=== PATIENT | female | born 1955 | race Caucasian/White ===

== ENCOUNTER 2017-02-21 15:15 | Inpatient (IN) | payer MEDICARE, MEDICAID ==
[~2017-02-21] VITALS: Ht 158.7 cm; Wt 59.4 kg
[2017-02-21] MEDS ORDERED: BUSPAR5 MG PO ×2 (15:24→15:27)
[2017-02-21] MEDS ORDERED: BROVANA15 MCG/2 M INH (15:26)
[2017-02-21] MEDS ORDERED: ATIVAN0.5 MG PO ×2 (15:28→16:08)
[2017-02-21] MEDS ORDERED: CHLORASEPTIC S177 ML PO (15:30)
[2017-02-21] MEDS ORDERED: 'CLONIDINE0.1 MG PO (15:31)
[2017-02-21] MEDS ORDERED: DULCOLAX10 M1 R (15:32)
[2017-02-21] MEDS ORDERED: FLUTICASON0.05 MG/AC NAS (15:33)
[2017-02-21] MEDS ORDERED: COZAAR100 MG PO (15:35)
[2017-02-21] MEDS ORDERED: PREDNISONE10 M1 PO (15:37)
[2017-02-21] MEDS ORDERED: NATURE'S BLEND100 M2 PO (15:38)
[2017-02-21] MEDS ORDERED: HYDROCODONE/ACE1 TAB PO (15:48)
[2017-02-21] MEDS ORDERED: ATROVENT I0.5 MG/2.1 INH (15:53)
[2017-02-21] MEDS ORDERED: PRIMIDONE50 MG PO (15:54)
[2017-02-21] MEDS ORDERED: THEOPHYLLINE E100 M1 PO (15:58)
[2017-02-21] MEDS ORDERED: THERA-M W/MINER1 TAB PO (15:59)
[2017-02-21] MEDS ORDERED: ACETAMINOPHEN325 M2 PO (16:00)
[2017-02-21] MEDS ORDERED: ALBUTEROL SULFAT3 M2 INH (16:01)
[2017-02-21] MEDS ORDERED: ARTIFICIAL TEARS OU (16:05)
[2017-02-21] MEDS ORDERED: HYDROCODONE/ACE1 T11 PO (16:06)
[2017-02-21] MEDS ORDERED: SALINE NOSE SPR45 ML NAS (16:11)
[2017-02-21] MEDS ORDERED: Zofran4 MG PO (16:13)
[2017-02-21] MEDS ORDERED: NATURE'S BLEND500 M5 PO (16:13)
[2017-02-21 18:35] VITALS: BP 104/50
[2017-02-21 20:09] VITALS: BP 114/54
[2017-02-21 21:52] VITALS: BP 114/54
[2017-02-21 23:25] LABS: BILIRUBIN NEGATIVE (NEGATIVE); BLOOD NEGATIVE (NEGATIVE); CLARITY CLEAR (CLEAR); COLOR YELLOW (YELLOW); GLUCOSE NEGATIVE (NEGATIVE); KETONE NEGATIVE (NEGATIVE); LEUKO ESTERASE 2+ (NEGATIVE); NITRITE NEGATIVE (NEGATIVE); PH 5.5 (5.0-9.0); PROTEIN NEGATIVE (NEGATIVE); SPECIFIC GRAVITY <= 1.005 (1.005-1.030); UROBILINOGEN 0.2 E.U./dl (0.2-1.0)
[2017-02-21 23:32] LABS: BACTERIA TRACE; URINE REFLEX COMMENT YES (NO)
[2017-02-21 23:33] LABS: WBC 16-20 wbc/hpf (0-5)
[2017-02-22 02:07] LABS: ALBUMIN 3.1 gm/dl (3.1-4.5); ALKALINE PHOSPHATASE 78 U/L (45-117); BILIRUBIN, TOTAL 0.2 mg/dl (0.2-1.0); BUN 7 mg/dl (7-24); CARBON DIOXIDE 32 mmol/L (21-32); CHLORIDE 100 mmol/L (98-107); EST GLOM FILT AFRICAN AMERICAN > 60 ml/min; GLUCOSE 103 mg/dL (65-99); MAGNESIUM 1.8 mg/dL (1.5-2.1); POTASSIUM 3.8 mmol/L (3.5-5.1); SGOT/AST 22 IU/L (3-35); SGPT/ALT 19 U/L (12-78); SODIUM 141 mmol/L (136-145); TOTAL PROTEIN 6.3 gm/dL (6.4-8.2)
[2017-02-22 02:09] LABS: HEMATOCRIT 34.5 % (37.0-47.0); HEMOGLOBIN 10.2 g/dl (12.0-16.0); MEAN CELL VOLUME 76.8 fl (81.0-99.0); MEAN CORPUSCULAR HGB 22.7 pg (27.0-31.0); MEAN CORPUSCULAR HGB CONC 29.6 g/dl (33.0-37.0); MEAN PLATELET VOLUME 10.8 fl (9.6-12.3); PLATELET COUNT AUTOMATED 536 10*3/uL (130-400); RED BLOOD COUNT 4.49 10*6/uL (4.10-5.10); RED CELL DISTRI WIDTH 16.6 % (0-14.5); WHITE BLOOD COUNT 25.4 10*3/uL (4.8-10.8)
[2017-02-22 02:19] LABS: THEOPHYLLINE 5.2 ug/ml (10-20)
[2017-02-22 02:28] LABS: ATYPICAL LYMPHS 1 % (0-0); BASOPHIL # 0.3 10*3/uL (0-0.1); BASOPHILS 1 % (0-1); EOSINOPHIL # 0.5 10*3/uL (0-0.4); EOSINOPHILS 2 % (1-4); HYPOCHROMIA MODERATE; LYMPHOCYTE # 1.5 10*3/uL (1.3-4.4); MONOCYTE # 1.5 10*3/uL (0.1-1.0); NEUTROPHIL # 21.6 10*3/uL (2.3-7.9); NEUTROPHILS 85 % (47-73); PLATELET SUFFICIENCY HIGH (NORMAL); TOTAL CELLS COUNTED 100 #CELLS
[2017-02-22 02:29] LABS: MICROCYTOSIS SLIGHT
[2017-02-22 07:10] LABS: HEMATOCRIT 35.8 % (37.0-47.0); HEMOGLOBIN 10.5 g/dl (12.0-16.0); MEAN CELL VOLUME 77.3 fl (81.0-99.0); MEAN CORPUSCULAR HGB 22.7 pg (27.0-31.0); MEAN CORPUSCULAR HGB CONC 29.3 g/dl (33.0-37.0); MEAN PLATELET VOLUME 11.1 fl (9.6-12.3); PLATELET COUNT AUTOMATED 549 10*3/uL (130-400); RED BLOOD COUNT 4.63 10*6/uL (4.10-5.10); RED CELL DISTRI WIDTH 16.7 % (0-14.5); WHITE BLOOD COUNT 24.6 10*3/uL (4.8-10.8)
[2017-02-22 07:21] LABS: HEMOGLOBIN A1c 5.9 % (4.8-5.6)
[2017-02-22 07:22] LABS: ALKALINE PHOSPHATASE 81 U/L (45-117); BILIRUBIN, TOTAL 0.2 mg/dl (0.2-1.0); BUN 6 mg/dl (7-24); CARBON DIOXIDE 28 mmol/L (21-32); CHLORIDE 101 mmol/L (98-107); CHOLESTEROL 174 mg/dL (<200); EST GLOM FILT AFRICAN AMERICAN > 60 ml/min; GLUCOSE 101 mg/dL (65-99); HDL CHOLESTEROL 70 mg/dl (40-60); LDL CHOLESTEROL 87 mg/dL (9-159); POTASSIUM 4.3 mmol/L (3.5-5.1); SGOT/AST 14 IU/L (3-35); SGPT/ALT 18 U/L (12-78); SODIUM 141 mmol/L (136-145); TOTAL PROTEIN 6.4 gm/dL (6.4-8.2); TRIGLYCERIDES 87 mg/dl (<150); VLDL CHOLESTEROL 17 mg/dL (6-40)
[2017-02-22 07:28] LABS: THYROID STIM HORMONE (HS) 0.811 uIU/ml (0.358-4.75)
[2017-02-22 07:29] LABS: HYPOCHROMIA SLIGHT; METAMYELOCYTES 1 % (0-0); MICROCYTOSIS MODERATE; MONOCYTE # 2.7 10*3/uL (0.1-1.0); NEUTROPHIL # 20.7 10*3/uL (2.3-7.9); NEUTROPHILS 84 % (47-73); OVALOCYTES FEW; PLATELET SUFFICIENCY HIGH (NORMAL); TOTAL CELLS COUNTED 100 #CELLS
[2017-02-22 08:09] VITALS: BP 127/66
[2017-02-22] MEDS ORDERED: DULOXETINE HCL60 MG PO (08:22)
[2017-02-22] MEDS ORDERED: ZINC SULFATE220 MG PO (08:22)
[2017-02-22] MEDS ORDERED: CLONAZEPAM1 MG PO ×2 (08:22)
[2017-02-23] MEDS ORDERED: BUSPAR5 MG PO (05:40)
[2017-02-24] MEDS ORDERED: ATIVAN0.5 MG PO (05:33)
[2017-02-24] MEDS ORDERED: BUSPAR5 MG PO (05:38)
[2017-02-24] MEDS ORDERED: MOM30 ML PO (05:48)
[2017-02-25] MEDS ORDERED: HYDROXYZINE PAM25 M1 PO (14:15)
[2017-02-25] MEDS ORDERED: FUROSEMIDE20 M1 PO (14:15)
[2017-02-25] MEDS ORDERED: MUCINEX ER600 MG PO (14:15)
[2017-02-25] MEDS ORDERED: VANCOMYCIN250 MG/2.5 PO (14:15)
[2017-02-25] MEDS ORDERED: PREDNISONE10 MG PO (14:15)
[2017-02-25] MEDS ORDERED: LEVAQUIN750 M1 PO (14:15)
== END 2017-02-22 09:35 | disposition short-term general hospital (02) | DRG 885 ==
LOC: 3N 15:15
PROVIDERS: Internal Medicine; Psychiatry & Neurology Psychiatry
DX: F33.1 Major depressive disorder, recurrent, moderate (principal); J96.11 Chronic respiratory failure with hypoxia; Z93.0 Tracheostomy status; G20 Parkinson's disease; F41.1 Generalized anxiety disorder; J44.9 Chronic obstructive pulmonary disease, unspecified; M81.0 Age-related osteoporosis without current pathological fracture; I10 Essential (primary) hypertension; M54.5 Low back pain; G89.29 Other chronic pain; R00.0 Tachycardia, unspecified; R07.0 Pain in throat; R30.0 Dysuria; M79.7 Fibromyalgia; K44.9 Diaphragmatic hernia without obstruction or gangrene; Z82.49 Family history of ischemic heart disease and other diseases of the circulatory system; Z83.79 Family history of other diseases of the digestive system; Z88.1 Allergy status to other antibiotic agents; Z88.5 Allergy status to narcotic agent; Z88.8 Allergy status to other drugs, medicaments and biological substances; Z79.899 Other long term (current) drug therapy; Z90.49 Acquired absence of other specified parts of digestive tract

== ENCOUNTER 2017-02-25 16:07 | Inpatient (IN) | payer MEDICARE, MEDICAID ==
[~2017-02-25] VITALS: Ht 165.1 cm; Wt 62.2 kg
[~2017-02-25 16:07] MED LIST: 'CLONIDINE0.1 MG PO; ACETAMINOPHEN325 M2 PO; ALBUTEROL SULFAT3 M2 INH; ARTIFICIAL TEARS OU; ATIVAN0.5 MG PO; ATROVENT I0.5 MG/2.1 INH; BROVANA15 MCG/2 M INH; BUSPAR5 MG PO; CHLORASEPTIC S177 ML PO; CLONAZEPAM1 MG PO; COZAAR100 MG PO; DULCOLAX10 M1 R; DULOXETINE HCL60 MG PO; FLUTICASON0.05 MG/AC NAS; FUROSEMIDE20 M1 PO; HYDROCODONE/ACE1 T11 PO; HYDROCODONE/ACE1 TAB PO; HYDROXYZINE PAM25 M1 PO; LEVAQUIN750 M1 PO; MOM30 ML PO; MUCINEX ER600 MG PO; NATURE'S BLEND100 M2 PO; NATURE'S BLEND500 M5 PO; PREDNISONE10 M1 PO; PREDNISONE10 MG PO; PRIMIDONE50 MG PO; SALINE NOSE SPR45 ML NAS; THEOPHYLLINE E100 M1 PO; THERA-M W/MINER1 TAB PO; VANCOMYCIN250 MG/2.5 PO; ZINC SULFATE220 MG PO; Zofran4 MG PO
[2017-02-25 17:53] VITALS: BP 137/86
[2017-02-25 20:19] VITALS: BP 138/88
[2017-02-26 06:45] LABS: BUN 7 mg/dl (7-24); CARBON DIOXIDE 34 mmol/L (21-32); CHLORIDE 102 mmol/L (98-107); EST GLOM FILT AFRICAN AMERICAN > 60 ml/min; GLUCOSE 77 mg/dL (65-99); POTASSIUM 3.9 mmol/L (3.5-5.1); SODIUM 141 mmol/L (136-145)
[2017-02-26 07:06] LABS: BASO % 0.1 % (0.0-1.0); EOS % 0.1 % (1.0-4.0); HEMATOCRIT 34.8 % (37.0-47.0); IG # 0.1 10*3/uL (0.0-0.1); LYMPH # 1.8 10*3/uL (1.3-4.4); LYMPH % 15.1 % (27.0-41.0); MEAN CELL VOLUME 78.2 fl (81.0-99.0); MEAN CORPUSCULAR HGB 22.5 pg (27.0-31.0); MEAN CORPUSCULAR HGB CONC 28.7 g/dl (33.0-37.0); MEAN PLATELET VOLUME 10.8 fl (9.6-12.3); MONO # 1.4 10*3/uL (0.1-1.0); MONO % 11.9 % (3.0-9.0); NEUT # 8.7 10*3/uL (2.3-7.9); NUCLEATED RED BLOOD CELL 0.2 % (0.0-0.0); PLATELET COUNT AUTOMATED 481 10*3/uL (130-400); RED BLOOD COUNT 4.45 10*6/uL (4.10-5.10); WHITE BLOOD COUNT 12.1 10*3/uL (4.8-10.8)
[2017-02-26 10:48] VITALS: BP 160/98
[2017-02-26] MEDS ORDERED: DOXYCYCLINE MO100 M1 PO (18:56)
[2017-02-26 20:00] VITALS: BP 148/68
== END 2017-02-26 20:27 | DRG 190 ==
LOC: 3N 16:07
PROVIDERS: Internal Medicine Hospice and Palliative Medicine
DX: J44.0 Chronic obstructive pulmonary disease with (acute) lower respiratory infection (principal); J18.9 Pneumonia, unspecified organism; J96.11 Chronic respiratory failure with hypoxia; A04.7 Enterocolitis due to Clostridium difficile; Z93.0 Tracheostomy status; F33.1 Major depressive disorder, recurrent, moderate; N39.0 Urinary tract infection, site not specified; J44.1 Chronic obstructive pulmonary disease with (acute) exacerbation; G20 Parkinson's disease; D50.9 Iron deficiency anemia, unspecified; D47.3 Essential (hemorrhagic) thrombocythemia; M79.7 Fibromyalgia; I10 Essential (primary) hypertension; M54.5 Low back pain; G89.29 Other chronic pain; K44.9 Diaphragmatic hernia without obstruction or gangrene; F41.1 Generalized anxiety disorder; M81.0 Age-related osteoporosis without current pathological fracture; Z90.49 Acquired absence of other specified parts of digestive tract; Z87.891 Personal history of nicotine dependence; Z82.49 Family history of ischemic heart disease and other diseases of the circulatory system; Z84.89 Family history of other specified conditions; Z88.6 Allergy status to analgesic agent; Z88.1 Allergy status to other antibiotic agents; Z88.5 Allergy status to narcotic agent; Z79.2 Long term (current) use of antibiotics; Z79.899 Other long term (current) drug therapy

== ENCOUNTER 2017-02-26 19:02 | Inpatient (IN) | payer MEDICARE, MEDICAID ==
[~2017-02-26] VITALS: Ht 165.1 cm; Wt 61.3 kg
[~2017-02-26 19:02] MED LIST changes: +DOXYCYCLINE MO100 M1 PO
[2017-02-26 20:40] VITALS: BP 151/86
[2017-02-27] VITALS: BP 152/80
[2017-02-27 06:35] LABS: HEMATOCRIT 34.8 % (37.0-47.0); HEMOGLOBIN 10.3 g/dl (12.0-16.0); MEAN CORPUSCULAR HGB 22.8 pg (27.0-31.0); MEAN CORPUSCULAR HGB CONC 29.6 g/dl (33.0-37.0); MEAN PLATELET VOLUME 10.9 fl (9.6-12.3); PLATELET COUNT AUTOMATED 433 10*3/uL (130-400); RED BLOOD COUNT 4.52 10*6/uL (4.10-5.10); WHITE BLOOD COUNT 11.8 10*3/uL (4.8-10.8)
[2017-02-27 06:46] LABS: ALBUMIN 2.7 gm/dl (3.1-4.5); ALKALINE PHOSPHATASE 65 U/L (45-117); BILIRUBIN, TOTAL 0.2 mg/dl (0.2-1.0); BUN 9 mg/dl (7-24); CARBON DIOXIDE 34 mmol/L (21-32); CHLORIDE 100 mmol/L (98-107); EST GLOM FILT AFRICAN AMERICAN > 60 ml/min; GLUCOSE 101 mg/dL (65-99); MAGNESIUM 1.5 mg/dL (1.5-2.1); PHOSPHOROUS 2.2 mg/dL (2.5-4.9); POTASSIUM 3.4 mmol/L (3.5-5.1); SGOT/AST 17 IU/L (3-35); SGPT/ALT 23 U/L (12-78); SODIUM 142 mmol/L (136-145); TOTAL PROTEIN 5.8 gm/dL (6.4-8.2)
[2017-02-27 07:18] LABS: PROTHROMBIN TIME 10.7 SECONDS (9.0-12.4)
[2017-02-27 07:22] LABS: LYMPHOCYTE # 1.2 10*3/uL (1.3-4.4); MONOCYTE # 1.1 10*3/uL (0.1-1.0); NEUTROPHIL # 9.6 10*3/uL (2.3-7.9); NEUTROPHILS 81 % (47-73); PLATELET SUFFICIENCY HIGH (NORMAL); TOTAL CELLS COUNTED 100 #CELLS
[2017-02-27 07:23] LABS: HYPOCHROMIA SLIGHT; MICROCYTOSIS SLIGHT
[2017-02-27 08:00] VITALS: BP 133/75
[2017-02-27 12:00] VITALS: BP 131/75
[2017-02-27 16:00] VITALS: BP 119/73
[2017-02-27 20:00] VITALS: BP 100/65
[2017-02-28] VITALS: BP 104/66
[2017-02-28 07:19] LABS: BASO % 0.1 % (0.0-1.0); EOS # 0.1 10*3/uL (0.0-0.4); EOS % 0.7 % (1.0-4.0); HEMATOCRIT 34.8 % (37.0-47.0); HEMOGLOBIN 10.3 g/dl (12.0-16.0); IG # 0.1 10*3/uL (0.0-0.1); LYMPH # 2.2 10*3/uL (1.3-4.4); LYMPH % 16.3 % (27.0-41.0); MEAN CELL VOLUME 76.3 fl (81.0-99.0); MEAN CORPUSCULAR HGB 22.6 pg (27.0-31.0); MEAN CORPUSCULAR HGB CONC 29.6 g/dl (33.0-37.0); MONO % 7.7 % (3.0-9.0); NEUT # 9.9 10*3/uL (2.3-7.9); NEUT % 74.3 % (47.0-73.0); PLATELET COUNT AUTOMATED 455 10*3/uL (130-400); RED BLOOD COUNT 4.56 10*6/uL (4.10-5.10); WHITE BLOOD COUNT 13.3 10*3/uL (4.8-10.8)
[2017-02-28 07:29] LABS: BUN 13 mg/dl (7-24); CARBON DIOXIDE 37 mmol/L (21-32); CHLORIDE 96 mmol/L (98-107); EST GLOM FILT AFRICAN AMERICAN > 60 ml/min; GLUCOSE 126 mg/dL (65-99); POTASSIUM 3.3 mmol/L (3.5-5.1); SODIUM 140 mmol/L (136-145)
[2017-02-28 08:00] VITALS: BP 107/57
[2017-02-28 12:00] VITALS: BP 111/68
[2017-02-28 16:00] VITALS: BP 113/80
[2017-02-28 20:00] VITALS: BP 117/69
[2017-02-28 23:53] VITALS: BP 118/83
[2017-03-01 07:14] LABS: BASO % 0.1 % (0.0-1.0); EOS # 0.1 10*3/uL (0.0-0.4); EOS % 1.1 % (1.0-4.0); IG # 0.1 10*3/uL (0.0-0.1); LYMPH # 2.6 10*3/uL (1.3-4.4); LYMPH % 19.6 % (27.0-41.0); MEAN CELL VOLUME 76.1 fl (81.0-99.0); MEAN CORPUSCULAR HGB 22.4 pg (27.0-31.0); MEAN CORPUSCULAR HGB CONC 29.4 g/dl (33.0-37.0); MEAN PLATELET VOLUME 10.5 fl (9.6-12.3); MONO % 7.4 % (3.0-9.0); NEUT # 9.4 10*3/uL (2.3-7.9); NEUT % 70.7 % (47.0-73.0); PLATELET COUNT AUTOMATED 447 10*3/uL (130-400); RED BLOOD COUNT 4.47 10*6/uL (4.10-5.10); WHITE BLOOD COUNT 13.3 10*3/uL (4.8-10.8)
[2017-03-01 07:32] LABS: BUN 14 mg/dl (7-24); CARBON DIOXIDE 34 mmol/L (21-32); CHLORIDE 96 mmol/L (98-107); EST GLOM FILT AFRICAN AMERICAN > 60 ml/min; GLUCOSE 89 mg/dL (65-99); POTASSIUM 3.4 mmol/L (3.5-5.1); SODIUM 138 mmol/L (136-145)
[2017-03-01 08:00] VITALS: BP 127/53
[2017-03-01 12:00] VITALS: BP 102/56
[2017-03-01] MEDS ORDERED: K-PHOS500 MG PO (12:51)
[2017-03-01] MEDS ORDERED: VANCOMYCIN250 MG/2.5 PO (12:59)
[2017-03-01] MEDS ORDERED: CLONAZEPAM1 MG PO ×2 (14:27)
== END 2017-03-01 14:45 | disposition other institution (70) | DRG 371 ==
LOC: 4E 19:02
PROVIDERS: Internal Medicine; Internal Medicine Hospice and Palliative Medicine
DX: A04.7 Enterocolitis due to Clostridium difficile (principal); E43 Unspecified severe protein-calorie malnutrition; J96.11 Chronic respiratory failure with hypoxia; G20 Parkinson's disease; R65.10 Systemic inflammatory response syndrome (SIRS) of non-infectious origin without acute organ dysfunction; M54.5 Low back pain; I10 Essential (primary) hypertension; B37.3 Candidiasis of vulva and vagina; J44.1 Chronic obstructive pulmonary disease with (acute) exacerbation; F33.9 Major depressive disorder, recurrent, unspecified; Z68.22 Body mass index [BMI] 22.0-22.9, adult; Z87.891 Personal history of nicotine dependence; G89.29 Other chronic pain; F41.1 Generalized anxiety disorder; M81.0 Age-related osteoporosis without current pathological fracture; Z88.1 Allergy status to other antibiotic agents; Z88.8 Allergy status to other drugs, medicaments and biological substances; Z82.49 Family history of ischemic heart disease and other diseases of the circulatory system; Z88.5 Allergy status to narcotic agent; E87.6 Hypokalemia; Z90.49 Acquired absence of other specified parts of digestive tract; Z79.52 Long term (current) use of systemic steroids; Z79.899 Other long term (current) drug therapy